=== PATIENT | female | born 1985 | race Caucasian/White ===

== ENCOUNTER 2016-05-22 02:09 | Inpatient (IN) | payer OTHER ==
[~2016-05-22] VITALS: Ht 165.1 cm; Wt 76.3 kg
[~2016-05-22 02:09] MED LIST: PRENAT PO
[2016-05-22 02:27] VITALS: Ht 165.1 cm; Wt 76.3 kg
[2016-05-22 02:28] VITALS: BP 123/68; PULSE 67; RESP 18
--- NOTE | 2016-05-22 03:16 | RADRPT ---
PROCEDURE: Biophysical profile. CLINICAL INDICATION: Pelvic pain. TECHNIQUE: Multiple sonographic images of the pelvis were obtained with transabdominal technique. COMPARISON: No prior studies are available for comparison. FINDINGS: There is a single living intrauterine gestation with the fetus in a vertex position. The placenta i s posterior and fundal in location, grade II. heart tones of 143 beats per minute are identifi ed. There is normal amniotic fluid volume with an JUNAID of 10.5 cm. breathing movements = 2 Gross body movements = 2 tone = 2 Qualitative AFV = 2 IMPRESSION: Biophysical profile 8 out of 8. .Suhail Fernandez MD, MD Date Time Electronically viewed and signed by .Suhail Fernandez MD, on 05/22/2016 03:16 .T/
--- NOTE | 2016-05-22 05:37 | HP ---
Date/Time of Note Date/Time of Note DATE: 05/22/16 TIME: 05:30 OB - History Hx of Present Free Text/Dictation Pt is a 30yo at 40+0 presenting to triage with c/o painful UCs since 2229. Pt reports normal FM, denies LOF or VB. Pt is being seen by Dr. Santana for care and her records are unavailable. PROCEDURE: Biophysical profile. CLINICAL INDICATION: Pelvic pain. TECHNIQUE: Multiple sonographic images of the pelvis were obtained with transabdominal technique. COMPARISON: No prior studies are available for comparison. FINDINGS: There is a single living intrauterine gestation with the fetus in a vertex position. The placenta is posterior and fundal in location, grade II. heart tones of 143 beats per minute are identified. There is normal amniotic fluid volume with an JUNAID of 10.5 cm. breathing movements = 2 Gross body movements = 2 tone = 2 Qualitative AFV = 2 IMPRESSION: Biophysical profile 8 out of 8. Estimated Due Date: May 22, 2016 : 3 Para: 2 Care: Good Care (per pt report) Obstetrical Complications: None Medical Complications: None Past Family/Social History * Chart not available OB Admission Exam Vital Signs Vital Signs Vital Signs Date Time Temp Pulse Resp B/P Pulse Ox O2 Delivery O2 Flow Rate FiO2 05/22/16 02:28 98.2 67 18 123/68 98 Room Air Physical Exam HEENT: WNL Heart: Rhythm Normal Lungs: Clear Abdomen: WNL Extremities: Edema (trace bilateral lower extremity ) Cervical Dilatation: 2cm (to 3cm) Effacement: Other (60%) Station: -3 (posterior) Membranes: Intact Heart Rate: 130's Accelerations: Accelerations Present Decelerations: Late Decelarations (repetitive x3 s/p 2nd SVE) Varibility: Moderate Contractions on Admission: 6-10 Minutes Apart Intensity: Moderate OB Assessment/Plan Other Assessment: Early Labor without cervical change Category 2 FHT at term Records unavailable Other plan: Plan to do prolonged observation in triage given Category 2 FHT at term Will not augment labor at this time given unclear dates and absence of PNR to confirm. EFW ordered CEFM and toco with plan to augment however if FHT remains Category 2 GBS unknown thus if admitted, will need treatment based on risk-based protocol. TYLER STOCK MD May 22, 2016 05:36 TYLER STOCK MD May 22, 2016 05:36
--- NOTE | 2016-05-22 06:34 | RADRPT ---
PROCEDURE: Obstetrical ultrasound, limited. CLINICAL INDICATION: Pelvic pain. TECHNIQUE: Multiple sonographic images of the pelvis were obtained using transabdominal technique . Images were obtained with callahan scale and color Doppler. The images were reviewed on a PACS works tation. COMPARISON: No prior studies are available for comparison. FINDINGS: There is a single living intrauterine gestation with the fetus in a vertex presentation. hear t tones of 150 beats per minute are identified. The placenta is posterior in location, grade 2. Th ere is normal amniotic fluid volume with an JUNAID of 10.5 cm. There is no evidence of placenta previa or abruption. Measurements were made in order to determine age. The results are as follows: BPD =9.18 cm HC =33.32 cm AC =34.57 cm FL =6.77 cm. Estimated gestational age of approximately 37 weeks and 1 day. The estimated date of delivery is 06/11/2016. The EFW = 3212 +/- 482 grams. Estimated weight percentage equals 18.8%. IMPRESSION: Single viable intrauterine gestation of approximately 37 weeks and 1 day, with an ultrasound RYAN of 06/11/2016. .Suhail Fernandez MD, MD Date Time Electronically viewed and signed by .Suhail Fernandez MD, MD on 05/22/2016 06:34 .T/
[2016-05-22] MEDS ORDERED: LACTATED RINGER'S 1,000 ML IV PRN (07:35)
[2016-05-22] MEDS: LACTATED RINGER'S 1,000 ML IV SCH ×2 (07:52→22:47)
[2016-05-22] MEDS ORDERED: ACETAMINOPHEN/CODEINE #3 TAB PO PRN (08:00)
[2016-05-22] MEDS ORDERED: METHYLERGONOVINE 0.2 MG INJ IM PRN (08:00)
[2016-05-22] MEDS ORDERED: MISOPROSTOL 200 MCG TAB PR PRN (08:00)
[2016-05-22] MEDS ORDERED: OXYTOCIN 30 UNITS/LR 500 ML IV SCH ×3 (08:00→15:30)
[2016-05-22] MEDS ORDERED: CARBOPROST 250 MCG INJ IM PRN (08:00)
[2016-05-22] MEDS ORDERED: LIDOCAINE 1% (MPF) 30 ML INJ INJ PRN (08:00)
[2016-05-22] MEDS ORDERED: OXYTOCIN 30 UNITS/LR 500 ML IV PRN (08:00)
[2016-05-22] MEDS ORDERED: IBUPROFEN 600 MG TAB PO PRN (08:00)
[2016-05-22 08:15] LABS: EOSINOPHILS # 0.1 10^3/ul (0.0-0.5); RED BLOOD COUNT 4.13 10^6/ul (4.20-5.40); UNCORRECTED WBC 8.5 10^3/ul (4.8-10.8); WHITE BLOOD COUNT 8.5 10^3/ul (4.8-10.8)
--- NOTE | 2016-05-22 08:22 | TRIAGE ---
OB Triage Datetime Report Generated by CPN: 05/22/2016 08:22 Datetime: 05/22/2016 07:48 Assessment Type: Admission Assessment Vaginal Bleeding: None Maternal Assessment Level of Consciousness: Fully Conscious DTR's/Clonus: DTRs 2+; No Clonus Headache: Denies Blurred Vision: No Respiratory Effort: Unlabored; Regular Rhythm; Equal Expansion Breath Sounds, Left: Clear and Equal Breath Sounds, Right: Clear and Equal Nausea/Vomiting: Denies RUQ Epigastric Pain: Denies Lower Extremities Edema: None Degree: None Upper Extremities Edema: None Degree: None Facial Edema: None Fall Risk Assessment History of Falling: (0) No Secondary Diagnosis: (0) No Ambulatory Aid: (0) Bedrest/Nurse Assist IV Therapy: (0) No Gait: (0) Normal/Bedrest/Immobile Mental Status: (0) Oriented to Own Ability Fall Score: 0 Fall Risk Score Definition: No Risk: No action required Labor Evaluation Frequency: 2-3 Duration (sec)2399: 60 Quality: Moderate Pattern: Normal: <= 5 Contractions in 10 Minutes Resting Tone [place]: Relaxed Heart Rate FHR Baseline Rate: 145 Variability: Moderate 6-25 bpm Decelerations: None Category: Category I Pain Assessment Pain Scale: 7 Pain Presence: Intermittent Pain Type: Contraction Pain Location: Abdomen Pain Goal: 3 Datetime: 05/22/2016 07:20 Vaginal Exam Dilatation (cms): 3.5 Effacement (%): 60 Station: -2 Exam By: RODRIGUEZ Jackman Membrane Status: Intact Vaginal Bleeding: None Cervix, Consistency: Moderate Cervix, Position: Posterior Presentation 'A': Cephalic Datetime: 05/22/2016 07:00 Stage of : OB Triage Labor Evaluation Frequency: 2.5-4 Monitor Mode: External Duration (sec)2399: 70-90 Quality: Moderate Pattern: Normal: <= 5 Contractions in 10 Minutes Resting Tone [place]: Relaxed Heart Rate FHR Baseline Rate: 140 Monitor Mode: External US FHR Baseline Changes: No Baseline Change Variability: Moderate 6-25 bpm Accelerations: 15X15 Decelerations: None Category: Category I Pain Assessment Pain Scale: 7 Pain Presence: Intermittent Pain Type: Cramping; Contraction Pain Location: Abdomen; Back Pain Relief Measures: Comfort Measures Datetime: 05/22/2016 06:00 Stage of : OB Triage Labor Evaluation Frequency: 2-3.5 Monitor Mode: External Duration (sec)2399: 80-130 Quality: Moderate Pattern: Normal: <= 5 Contractions in 10 Minutes Resting Tone [place]: Relaxed Heart Rate FHR Baseline Rate: 140 Monitor Mode: External US Variability: Moderate 6-25 bpm Accelerations: 15X15 Decelerations: None Category: Category I Datetime: 05/22/2016 05:40 Stage of : OB Triage Datetime: 05/22/2016 05:28 Stage of : OB Triage Monitor Mode: External Contraction Comments: [place] reconnected Heart Rate FHR Baseline Rate: 145 Monitor Mode: External US Comments: EFM reconnected Datetime: 05/22/2016 05:25 Stage of : OB Triage Datetime: 05/22/2016 05:19 Stage of : OB Triage Labor Evaluation Frequency: 2-3 Monitor Mode: External Duration (sec)2399: 50-110 Quality: Moderate Pattern: Normal: <= 5 Contractions in 10 Minutes Resting Tone [place]: Relaxed Heart Rate FHR Baseline Rate: 140 Monitor Mode: External US Variability: Moderate 6-25 bpm Accelerations: 15X15 Decelerations: Late Category: Category II Datetime: 05/22/2016 05:04 Vaginal Exam Dilatation (cms): 3.0 Effacement (%): 60 Station: -3 Exam By: RODRIGUEZ Jackman Membrane Status: Intact Vaginal Bleeding: None Cervix, Consistency: Moderate Cervix, Position: Posterior Datetime: 05/22/2016 04:29 Stage of : OB Triage Datetime: 05/22/2016 04:00 Stage of : OB Triage Datetime: 05/22/2016 02:53 Stage of : OB Triage Labor Evaluation Frequency: 3.5-10 Monitor Mode: External Duration (sec)2399: 50-70 Quality: Moderate Pattern: Normal: <= 5 Contractions in 10 Minutes Resting Tone [place]: Relaxed Heart Rate FHR Baseline Rate: 145 Monitor Mode: External US Variability: Moderate 6-25 bpm Accelerations: 15X15 Decelerations: None Category: Category I Datetime: 05/22/2016 02:44 Stage of : OB Triage Datetime: 05/22/2016 02:34 Vaginal Exam Dilatation (cms): 2.5 Effacement (%): 60 Station: -3 Exam By: RODRIGUEZ Jackman Membrane Status: Intact Vaginal Bleeding: None Cervix, Consistency: Moderate Cervix, Position: Posterior Datetime: 05/22/2016 02:24 Stage of : OB Triage Assessment Type: Triage Maternal Assessment Level of Consciousness: Fully Conscious DTR's/Clonus: DTRs 2+; No Clonus Headache: Denies Blurred Vision: No Respiratory Effort: Unlabored; Regular Rhythm; Equal Expansion Breath Sounds, Left: Clear and Equal Breath Sounds, Right: Clear and Equal Nausea/Vomiting: Denies RUQ Epigastric Pain: Denies Lower Extremities Edema: None Degree: None Upper Extremities Edema: None Degree: None Facial Edema: None Temperature Route: Oral Fall Risk Assessment History of Falling: (0) No Secondary Diagnosis: (0) No Ambulatory Aid: (0) Bedrest/Nurse Assist IV Therapy: (0) No Gait: (0) Normal/Bedrest/Immobile Mental Status: (0) Oriented to Own Ability Fall Score: 0 Fall Risk Score Definition: No Risk: No action required Pain Assessment Pain Scale: 5 Pain Presence: Intermittent Pain Type: Cramping; Contraction Pain Location: Abdomen Pain Relief Measures: Comfort Measures Datetime: 05/22/2016 02:22 Monitor Mode: External Contraction Comments: [place] applied Heart Rate FHR Baseline Rate: 145 Monitor Mode: External US Comments: EFM applied Datetime: 05/22/2016 02:20 Time of Arrival: 05/22/2016 02:06 EGA: 40.0 Arrived By: Wheelchair Arrived From: Home Chief Complaint: UCs q7-10mins Movement: Present Contractions: Regular Contractions: q7-10mins Rupture of Membranes: Denies Vaginal Bleeding: None Vaginal Discharge: Denies Abdominal Trauma: Not Applicable Patient Complaints: Contractions; Cramping Time Provider Notified: 05/22/2016 02:44 Provider Notified: Initial Plan: EFM x2, GILE
[2016-05-22 08:24] LABS: BASOPHILS % 0.4 % (0.0-2.0); EOSINOPHILS % 0.6 % (0.0-7.0); HEMATOCRIT 38.4 % (37.0-47.0); HEMOGLOBIN 13.4 g/dl (12.0-16.0); LYMPHOCYTES # 1.4 10^3/ul (0.8-2.9); LYMPHOCYTES % 16.9 % (15.0-51.0); MEAN CORPUSCULAR HEMOGLOBIN 32.4 pg (29.0-33.0); MEAN CORPUSCULAR HGB CONC 34.8 g/dl (32.0-37.0); MEAN CORPUSCULAR VOLUME 92.9 fl (82.0-101.0); MEAN PLATELET VOLUME 7.6 fl (7.4-10.4); MONOCYTE # 0.6 10^3/ul (0.3-0.9); NEUTROPHIL # 6.4 10^3/ul (1.6-7.5); NEUTROPHILS % 75.1 % (39.0-77.0); PLATELET COUNT 237 10^3/UL (140-440); RED CELL DISTRIBUTION WIDTH 14.3 % (11.5-14.5)
[2016-05-22 08:39] LABS: CONDITION 1
[2016-05-22 08:43] LABS: INR 0.91; PROTIME 12.2 Sec (12.2-14.2)
[2016-05-22 08:44] LABS: PARTIAL THROMBOPLASTIN TIME 26.3 Sec (25.0-35.0)
[2016-05-22] MEDS ORDERED: FENTAnyl 2MCG/ML-ROPIV 0.2% 100 ML ONE (09:03)
[2016-05-22] MEDS ORDERED: NALOXONE (0.4 MG/ML) INJ IV PRN (09:30)
[2016-05-22] MEDS: FENTAnyl 2MCG/ML-ROPIV 0.2% 100 ML BAG EPI SCH (17:18)
[2016-05-23] MEDS: FENTAnyl 2MCG/ML-ROPIV 0.2% 100 ML BAG EPI SCH (01:27)
--- NOTE | 2016-05-23 03:19 | LDN ---
Date/Time of Note Date/Time of Note DATE: 05/23/16 TIME: 03:16 Delivery Summary of a viable baby boy weighing 8# 1oz, or 3655 grams, 20" long and with Apgars of 9/9. Placenta Delivered: Spontaneously Meconium: none Perineum intact?: Yes Anesthesia type: Epidural Estimated blood loss: 150 Sponge & Needle done & correct: Yes All needle counts correct: Yes Any foreign bodies felt in the: No (vagina) Problems: Infant Delivery Information Sex Sex: male Apgars 1 Minute: 9 5 Minute: 9 Suctioning Nose & mouth suctioned at kely: Yes Delee suction performed: No Umbilical Cord Umbilical cord with: 3 Vessels Cord presentations: no nuchal cord Cord Blood was obtained: Yes Mother & Baby Disposition Disposition Mom & Baby to Maternity; Good: Yes Baby to NICU: No VINNY TORO MD May 23, 2016 03:19
--- NOTE | 2016-05-23 03:25 | DELSUM ---
Delivery Summary A-C Datetime Report Generated by CPN: 05/23/2016 03:25 DELIVERY PERSONNEL Ticket Worker: Patel, Sonia MATERNAL INFORMATION Delivery Anesthesia: Epidural Medications in Delivery: 30 UNIT PITOCIN Estimated Blood Loss (ml): 150 Placenta Cultured: No Maternal Complications: None LABOR SUMMARY EDC: 05/22/2016 00:00 No. Babies in Womb: 1 Attempted: No Labor Anesthesia: Epidural LABOR INFORMATION Reason for Induction: Not Applicable Onset of Labor: 05/21/2016 22:30 Complete Dilatation: 05/23/2016 02:31 Oxytocin: Augmentation Group B Beta Strep: Negative Antibiotics # of Doses: 0 Steroids Given: None Reason Steroids Not Administered: Not Applicable MEMBRANES Membranes Rupture Method: Spontaneous Membranes Rupture Method: Spontaneous Rupture of Membranes: 05/23/2016 02:31 Rupture of Membranes: 05/23/2016 02:31 Length of Rupture (hr): 0.25 Length of Rupture (hr): 0.25 Amniotic Fluid Color: Bloody Amniotic Fluid Color: Bloody Amniotic Fluid Amount: Small Amniotic Fluid Amount: Small Amniotic Fluid Odor: None Amniotic Fluid Odor: None STAGES OF LABOR Stage 1 hr: 28 Stage 1 min: 1 Stage 2 hr: 0 Stage 2 min: 15 Stage 3 hr: 0 Stage 3 min: 7 Total Time in Labor hr: 28 Total Time in Labor min: 23 VAGINAL DELIVERY Laceration Extension: First Degree Other Laceration: LABIAL Laceration Repair: Yes Initial Vag Sponge Count: 20 Final Vag Sponge Count: 20 Initial Vag Sharps Count: 1 Final Vag Sharps Count: 2 Sponge Count Correct: Yes Sharps Count Correct: Yes BABY A INFORMATION Infant Delivery Date/Time: 05/23/2016 02:46 Method of Delivery: Vaginal Born in Route : No : N/A Forceps: N/A Vacuum Extraction: N/A Shoulder Dystocia : N/A SHOULDER DYSTOCIA BABY A Delivery Date/Time: 05/23/2016 02:46 PRESENTATION/POSITION BABY A Presentation: Cephalic Cephalic Presentation: Vertex Breech Presentation: N/A PLACENTA INFORMATION BABY A Placenta Delivery Time : 05/23/2016 02:53 Placenta Method of Delivery: Spontaneous Placenta Status: Delivered SCORES BABY A Heart Rate 1 min: >100 bpm Resp Effort 1 min: Good Cry Reflex Irritability 1 min: Cough/Sneeze/Pulls Away Muscle Tone 1 min: Active Motion Color 1 min: Body [place], Extremit Blue Resuscitation Effort 1 min: Tactile Stimulation SCORE 1 MIN: 9 Heart Rate 5 min: >100 bpm Resp Effort 5 min: Good Cry Reflex Irritability 5 min: Cough/Sneeze/Pulls Away Muscle Tone 5 min: Active Motion Color 5 min: Body [place], Extremit Blue Resuscitation Effort 5 min: Tactile Stimulation SCORE 5 MIN: 9 INFORMATION BABY A Gestational Age at Delivery: 40.1 Gestational Status: Full Term- 39- 40.6 Weeks Outcome : Liveborn Condition : Stable Sex: Male IDENTIFICATION/MEDS BABY A ID Band Number: [id number] ID Band Location: Right Leg; Left Arm Sensor Applied: Yes Sensor Number: [id number] Sensor Location : Cord Clamp Vitamin K Given : Not Given Erythromycin Given: Not Given WEIGHT/LENGTH BABY A Infant Birthweight (gm): 3655 Weight (lb): 8 Infant Weight (oz): 1 Length (in): 20.00 Infant Length (cm): 50.80 CORD INFORMATION BABY A No. Cord Vessels: 3 Nuchal Cord : N/A Cord Blood Taken: Yes Infant Suction: Mouth; Nose ASSESSMENT BABY A Infant Complications: None Physical Findings at Delivery: Within Normal Limits Infant Respirations: Appears Normal Truck Technician/ALS Called : No Infant Care By: Anel GRAVES Transferred To: Remains with Mother
[2016-05-23] MEDS ORDERED: METHYLERGONOVINE 0.2 MG INJ IM PRN (03:30)
[2016-05-23] MEDS ORDERED: MISOPROSTOL 200 MCG TAB PR PRN (03:30)
[2016-05-23] MEDS ORDERED: OXYCODONE/ASPIRIN (4.88/325) TAB PO PRN (03:30)
[2016-05-23] MEDS ORDERED: CARBOPROST 250 MCG INJ IM PRN (03:30)
[2016-05-23] MEDS ORDERED: LANOLIN 7 GM TUBE TOP PRN (03:30)
[2016-05-23] MEDS ORDERED: OXYTOCIN 30 UNITS/LR 500 ML IV PRN (03:30)
[2016-05-23 04:50] VITALS: BP 112/71; PULSE 69; RESP 19
[2016-05-23 05:20] VITALS: BP 107/71; PULSE 70; RESP 20
[2016-05-23] MEDS: IBUPROFEN 600 MG TAB PO SCH ×3 (05:38→18:47)
[2016-05-23] MEDS: LACTATED RINGER'S 1,000 ML IV* SCH ×3 (06:09→19:11)
[2016-05-23 09:02] VITALS: BP 100/56; PULSE 64; RESP 14
[2016-05-23 12:23] VITALS: BP 110/75; PULSE 63; RESP 14
[2016-05-23 16:57] VITALS: BP 114/59; PULSE 72; RESP 16
[2016-05-23 20:00] VITALS: BP 115/62; PULSE 79; RESP 17
[2016-05-24] MEDS: IBUPROFEN 600 MG TAB PO SCH ×5 (00:27→23:36)
[2016-05-24] MEDS: LACTATED RINGER'S 1,000 ML IV* SCH ×3 (03:11→18:27)
[2016-05-24 04:00] VITALS: BP 94/56; PULSE 56; RESP 18
[2016-05-24 08:26] LABS: BASOPHILS % 0.3 % (0.0-2.0); EOSINOPHILS # 0.1 10^3/ul (0.0-0.5); EOSINOPHILS % 1.4 % (0.0-7.0); HEMATOCRIT 30.8 % (37.0-47.0); HEMOGLOBIN 10.8 g/dl (12.0-16.0); LYMPHOCYTES # 1.9 10^3/ul (0.8-2.9); MEAN CORPUSCULAR HEMOGLOBIN 32.5 pg (29.0-33.0); MEAN CORPUSCULAR HGB CONC 34.9 g/dl (32.0-37.0); MEAN PLATELET VOLUME 7.6 fl (7.4-10.4); MONOCYTE # 0.7 10^3/ul (0.3-0.9); MONOCYTES % 8.7 % (0.0-11.0); NEUTROPHIL # 4.9 10^3/ul (1.6-7.5); NEUTROPHILS % 64.6 % (39.0-77.0); PLATELET COUNT 191 10^3/UL (140-440); RED BLOOD COUNT 3.31 10^6/ul (4.20-5.40); RED CELL DISTRIBUTION WIDTH 14.7 % (11.5-14.5); UNCORRECTED WBC 7.6 10^3/ul (4.8-10.8); WHITE BLOOD COUNT 7.6 10^3/ul (4.8-10.8)
[2016-05-24 08:38] LABS: CONDITION 1; LH ANALYZER COMMENTS 1
[2016-05-24 09:00] VITALS: BP 98/53; PULSE 64; RESP 17
[2016-05-24 16:15] VITALS: BP 93/55; PULSE 62; RESP 17
[2016-05-24 19:30] VITALS: BP 114/72; PULSE 76; RESP 18
[2016-05-24] MEDS: SENNA TAB PO SCH (20:55)
[2016-05-25 03:40] VITALS: BP 110/60; PULSE 68; RESP 19
[2016-05-25] MEDS: IBUPROFEN 600 MG TAB PO SCH ×2 (05:53→11:16)
[2016-05-25 08:00] VITALS: BP 119/69; PULSE 70; RESP 18
[2016-05-25] MEDS ORDERED: DIPHTH/TET/ACEL PERTUSS (ADULT) 0.5 ML VIAL IM* ONE (09:00)
[2016-05-25] MEDS: SENNA TAB PO SCH (09:26)
--- NOTE | 2016-05-25 11:29 | DS ---
Date/Time of Note Date/Time of Note DATE: 05/25/16 TIME: 11:21 Discharge Summary Admission/Discharge Info Admit Date/Time May 22, 2016 at 07:27 Discharge Date/Time 05/25/2016 Final Diagnosis vaginal delivery Patient Condition: Good Procedures vaginal delivery Hx of Present Illness 30 years old female EDC 05/22/2016 CAME IN EARLY LABOR patient was augmented and delivered uneventfully Hospital Course as expected uneventfully Home Meds Reported Medications Multivit/Min/Fol Ac/Iron/Pren* ( S*) 1 Tab Tab, 1 TAB PO DAILY, TAB /07/16 Follow-up Plan 6 weeks JEFFREY HIDALGO MD May 25, 2016 11:28
== END 2016-05-25 12:00 | disposition home or self-care (01) | DRG 775 ==
LOC: OBT 02:09 → L-D 02:10 → OBT 07:23 → L-D 07:27 → PP1 05-23 04:50
PROVIDERS: ADMIT Obstetrics & Gynecology; ATTEND Obstetrics & Gynecology
PROC: 4A1HX4Z Monitoring of Products of Conception, Cardiac Electrical Activity, External Approach (ICD-10-PCS; 2016-05-22)
PROC: 10E0XZZ Delivery of Products of Conception, External Approach (ICD-10-PCS; principal; 2016-05-23)
PROC: 0HQ9XZZ Repair Perineum Skin, External Approach (ICD-10-PCS; 2016-05-23)
DX: O48.0 Post-term pregnancy (principal); O70.0 First degree perineal laceration during delivery; Z3A.40 40 weeks gestation of pregnancy; Z37.0 Single live birth
CPT/HCPCS: 62319; 76815; 76818; 85025; 85610; 85730; 86592; 86900; 86901; 87340; 90715; G0463; J2590; J3010; J7120